=== PATIENT | male | born 1965 | race Caucasian/White ===

== ENCOUNTER 2017-09-13 17:01 | Observation (INO) | payer BC, OTHER ==
[2017-09-13] MEDS ORDERED: NITRO-BID 2% UD PACKETS TOP ONE (17:49)
[2017-09-13] MEDS ORDERED: BABY ASPIRIN 81 MG CHEW PO ONE (17:49)
[2017-09-13] MEDS ORDERED: NITRO-BID 2% UD PACKETS ONE (17:53)
[2017-09-13] MEDS ORDERED: Sodium Chloride 0.9% 1000 ML 1,000 ML ONE (17:53)
[2017-09-13] MEDS ORDERED: BABY ASPIRIN 81 MG CHEW ONE (17:53)
--- NOTE | 2017-09-13 17:56 | ERPHSYRPT ---
- History of Present Illness Time Seen by Provider: 09/13/17 17:51 Historian: patient Exam Limitations: no limitations Patient Subjective Stated Complaint: Patient states his blood pressure is high. Patient checked at home and it was 188/122 and 193/117. Patient states he was feeling normal for himself. Triage Nursing Assessment: Patient states his blood pressure is high. Patient checked at home and it was 188/122 and 193/117. Patient states he was feeling normal for himself. Patient complains of chest pain on and off for 4-5 days. Patient states he doesn't take any blood pressure medication currently, but was taking Lisinopril 20mg bid and Chlorthalidone 25mg daily. Patient hasn't taken blood pressure meds for a month and a half. Heart tones audible and strong. No edema present. Physician History: 52-year-old white male with history of high blood pressure and pulmonary hypertension who states he has not taken his blood pressure medications for a month. Arrives with intermittent anterior chest pain described as a pressure not associated with shortness of breath off-and-on for the past several days he states that for the past 4 hours he is having pain in the anterior chest described as a pressure rated 4 out of 10. Past medical history includes high blood pressure, pulmonary hypertension. Past surgical history includes hernia repair, mastectomy, finger surgery. patient does state that at 188/122 and the second time at 193/117 Timing/Duration: day(s) Activities at Onset: none Quality: pressure Location: substernal Chest Pain Radiation: no radiation Severity of Pain-Max: moderate Severity of Pain-Current: mild Associated Symptoms: No nausea, No vomiting, No palpitations, No heartburn, No abdominal pain, No shortness of breath, No cough, No hurts to breathe, No diaphoresis, No chills, No fever, No fatigue, No weakness, No swelling/lump in chest, No syncope, No rash, No headache, No dizziness, No edema, No back pain Nitro Today/Relief: provided by ED (nitroglycerine 1 inch in er) Aspirin Treatment Today: 81 mg x 4, provided by ED Allergies/Adverse Reactions: No Known Drug Allergies Allergy (Unverified 09/13/17 17:36) Home Medications: No Reportable Medications [No Reported Medications] 09/13/17 [History] Hx Tetanus, Diphtheria Vaccination/Date Given: Yes Hx Influenza Vaccination/Date Given: No Hx Pneumococcal Vaccination/Date Given: No Immunizations Up to Date: Yes - Review of Systems Constitutional: No Fever, No Chills Eyes: No Symptoms Ears, Nose, & Throat: No Symptoms Respiratory: No Cough, No Dyspnea Cardiac: Chest Pain Abdominal/Gastrointestinal: No Abdominal Pain, No Nausea, No Vomiting, No Diarrhea Genitourinary Symptoms: No Dysuria Musculoskeletal: No Back Pain, No Neck Pain Skin: No Rash Neurological: No Dizziness, No Focal Weakness, No Sensory Changes Psychological: No Symptoms Endocrine: No Symptoms All Other Systems: Reviewed and Negative - Past Medical History Pertinent Past Medical History: Yes Neurological History: No Pertinent History ENT History: No Pertinent History Cardiac History: Hypertension Respiratory History: No Pertinent History Endocrine Medical History: No Pertinent History Musculoskeletal History: No Pertinent History GI Medical History: No Pertinent History History: No Pertinent History Psycho-Social History: No Pertinent History Other Medical History: Pulmonary HTN - Past Surgical History Past Surgical History: Yes Neuro Surgical History: No Pertinent History Cardiac: No Pertinent History Respiratory: No Pertinent History Gastrointestinal: Hernia Repair Musculoskeletal: Other Male Surgical History: Vasectomy Other Surgical History: Vescectomy, Hernia, finger reconstruction surgery on 3 digits. - Social History Smoking Status: Never smoker Exposure to second hand smoke: No Drug Use: none Patient Lives Alone: No - Nursing Vital Signs Nursing Vital Signs: Initial Vital Signs Temperature 98.3 F 09/13/17 17:22 Pulse Rate 69 09/13/17 17:22 Respiratory Rate 14 09/13/17 17:22 Blood Pressure 196/123 09/13/17 17:22 O2 Sat by Pulse Oximetry 97 09/13/17 17:22 Pain Scale Pain Intensity 4 - Physical Exam General Appearance: no apparent distress, alert Eye Exam: PERRL/EOMI, eyes nml inspection Ears, Nose, Throat Exam: normal ENT inspection, moist mucous membranes Neck Exam: normal inspection, non-tender, supple, full range of motion Respiratory Exam: normal breath sounds, lungs clear, No respiratory distress Cardiovascular Exam: regular rate/rhythm, normal heart sounds Gastrointestinal/Abdomen Exam: soft, No tenderness, No mass Back Exam: normal inspection, No CVA tenderness, No vertebral tenderness Extremity Exam: normal inspection, normal range of motion Neurologic Exam: alert, oriented x 3, cooperative, dyer helper II-XII nml as tested, normal mood/affect, sensation nml, No motor deficits Skin Exam: normal color, warm, dry SpO2 Interpretation: airway management int. (97%) SpO2: 97 - Course Nursing assessment & vital signs reviewed: Yes EKG Interpreted by Me: RATE (72 bpm), Sinus Rhythm, NORMAL AXIS, Other (EKG: Sinus rhythm, 72 bpm, normal axis, no acute ST or T wave changes, essentially normal EKG) Ordered Tests: Active Orders 24 hr Category Date Time Status Health Coach STAT Care 09/13/17 17:50 Active EKG-ER Only STAT Care 09/13/17 17:49 Active IV Insertion STAT Care 09/13/17 17:49 Active Pulse Oximetry (ED) STAT Care 09/13/17 17:49 Active CHEST 1 VIEW (PORTABLE) Stat Exams 09/13/17 17:50 Taken CBC W DIFF Stat Lab 09/13/17 17:49 Completed CMP Stat Lab 09/13/17 Completed D-DIMER QUANTITATION Stat Lab 09/13/17 17:49 Completed PROTIME WITH INR Stat Lab 09/13/17 17:49 Completed PTT Stat Lab 09/13/17 17:49 Completed TROPONIN Q3H Lab 09/13/17 Completed TROPONIN Q3H Lab 09/13/17 21:00 Ordered TROPONIN Q3H Lab 09/14/17 00:00 Ordered TROPONIN Q3H Lab 09/14/17 03:00 Ordered TROPONIN Q3H Lab 09/14/17 06:00 Ordered Medication Summary Generic Name Dose Route Start Last Admin Trade Name Freq PRN Reason Stop Dose Admin Sodium Chloride 1,000 mls @ 50 mls/hr 09/13/17 18:00 09/13/17 17:55 Sodium Chloride 0.9% 1000 Ml IV 10/13/17 17:59 50 mls/hr .Q20H BRITNI Administration Discontinued Medications Generic Name Dose Route Start Last Admin Trade Name Freq PRN Reason Stop Dose Admin Amlodipine Besylate 10 mg 09/13/17 19:10 Norvasc 5 Mg PO 09/13/17 19:11 STAT ONE Aspirin 324 mg 09/13/17 17:49 09/13/17 17:54 Baby Aspirin 81 Mg Chew PO 09/13/17 17:50 324 mg STAT ONE Administration Aspirin Confirm 09/13/17 17:53 Baby Aspirin 81 Mg Chew Administered 09/13/17 17:54 Dose 324 mg .ROUTE .STK-MED ONE Nitroglycerin 1 gm 09/13/17 17:49 09/13/17 17:55 Nitro-Bid 2% Ud Packets TOP 09/13/17 17:50 1 gm STAT ONE Administration Nitroglycerin Confirm 09/13/17 17:53 Nitro-Bid 2% Ud Packets Administered 09/13/17 17:54 Dose 1 gm .ROUTE .STK-MED ONE Lab/Rad Data: Laboratory Result Diagrams 09/13/17 17:49 09/13/17 Unknown Laboratory Results 09/13/17 09/13/17 09/13/17 Range/Units Unknown Unknown 17:49 WBC (4.0-10.5) K/mm3 RBC (4.1-5.6) M/mm3 Hgb (12.5-18.0) gm/dl Hct (42-50) % MCV (78-100) fl MCH (26-32) pg MCHC (32-36) g/dl RDW (11.5-14.0) % Plt Count (150-450) K/mm3 MPV (6-9.5) fl Gran % (36.0-66.0) % Eos # (Auto) (0-0.5) Absolute Lymphs (auto) (1.0-4.6) Absolute Monos (auto) (0.0-1.3) Lymphocytes % (24.0-44.0) % Monocytes % (0.0-12.0) % Eosinophils % (0.00-5.0) % Basophils % (0.0-0.4) % Absolute Granulocytes (1.4-6.9) Basophils # (0-0.4) PT 12.1 (8.83-12.87) SECONDS INR 1.04 (0.8-3.0) APTT 36.6 H (24.1-36.1) SECONDS D-Dimer 238 (215-500) ng/mL Sodium 141 (137-145) mmol/L Potassium 3.5 (3.5-5.1) mmol/L Chloride 103 (98-107) mmol/L Carbon Dioxide 26 (22-30) mmol/L Anion Gap 14.9 (5-15) MEQ/L BUN 11 (9-20) mg/dL Creatinine 1.07 (0.66-1.25) mg/dL Estimated GFR > 60.0 ML/MIN Glucose 100 (74-106) mg/dL Calcium 9.5 (8.4-10.2) mg/dL Total Bilirubin 0.90 (0.2-1.3) mg/dL AST 30 (17-59) U/L ALT 34 (0-50) U/L Alkaline Phosphatase 88 (38-126) U/L Troponin I < 0.012 (0.000-0.034) ng/mL Serum Total Protein 8.3 H (6.3-8.2) g/dL Albumin 5.0 (3.5-5.0) g/dL 09/13/17 Range/Units 17:49 WBC 7.1 (4.0-10.5) K/mm3 RBC 5.01 (4.1-5.6) M/mm3 Hgb 15.9 (12.5-18.0) gm/dl Hct 44.1 (42-50) % MCV 88.0 (78-100) fl MCH 31.7 (26-32) pg MCHC 36.1 H (32-36) g/dl RDW 12.8 (11.5-14.0) % Plt Count 198 (150-450) K/mm3 MPV 10.8 H (6-9.5) fl Gran % 61.8 (36.0-66.0) % Eos # (Auto) 0.24 (0-0.5) Absolute Lymphs (auto) 1.95 (1.0-4.6) Absolute Monos (auto) 0.49 (0.0-1.3) Lymphocytes % 27.3 (24.0-44.0) % Monocytes % 6.9 (0.0-12.0) % Eosinophils % 3.4 (0.00-5.0) % Basophils % 0.6 (0.0-0.4) % Absolute Granulocytes 4.42 (1.4-6.9) Basophils # 0.04 (0-0.4) PT (8.83-12.87) SECONDS INR (0.8-3.0) APTT (24.1-36.1) SECONDS D-Dimer (215-500) ng/mL Sodium (137-145) mmol/L Potassium (3.5-5.1) mmol/L Chloride (98-107) mmol/L Carbon Dioxide (22-30) mmol/L Anion Gap (5-15) MEQ/L BUN (9-20) mg/dL Creatinine (0.66-1.25) mg/dL Estimated GFR ML/MIN Glucose (74-106) mg/dL Calcium (8.4-10.2) mg/dL Total Bilirubin (0.2-1.3) mg/dL AST (17-59) U/L ALT (0-50) U/L Alkaline Phosphatase (38-126) U/L Troponin I (0.000-0.034) ng/mL Serum Total Protein (6.3-8.2) g/dL Albumin (3.5-5.0) g/dL - Progress Progress: improved Air Movement: fair Progress Note: 09/13/17 19:13 Patient feeling better after 1 inch of nitropaste, aspirin 324 mg blood pressure improved 159/112 Patient's EKG showed normal sinus rhythm 72 bpm normal axis no acute ST or T wave changes chemistry and CBC were normal troponin was within normal limits d- dimer within normal limits Patient feeling much better with the nitroglycerin and aspirin. I discussed case with Dr. Yeh she requested that I go ahead and place patient on Norvasc 10 mg orally daily She also requested that I write for hydralazine 10 mg IV when necessary systolic blood pressure greater than 180 diastolic blood pressure greater than 110. Will go ahead and place patient on observation diagnosis chest pain, rule out [place]. Hypertension. - Departure Time of Disposition: 19:16 Departure Disposition: Observation Clinical Impression: Chest pain, rule out acute myocardial infarction Chest pain Qualifiers: Chest pain type: unspecified Qualified Code(s): R07.9 - Chest pain, unspecified Hypertension Qualifiers: Hypertension type: unspecified Qualified Code(s): I10 - Essential (primary) hypertension Condition: Fair Critical Care Time: No Referrals: PATIENCE CAMPO [Primary Care Provider] -
[2017-09-13] MEDS ORDERED: Sodium Chloride 0.9% 1000 ML 1,000 ML IV SCH ×2 (18:00→20:30)
[2017-09-13 18:15] LABS: BASOPHIL % 0.6 % (0.0-0.4); Basophil (Absolute #) 0.04 (0-0.4); Eosinophil % 3.4 % (0.00-5.0); Eosinophil (Absolute #) 0.24 (0-0.5); Granulocyte Absolute (ANC) 4.42 (1.4-6.9); Granulocytes % 61.8 % (36.0-66.0); Hematocrit 44.1 % (42-50); Hemoglobin 15.9 gm/dl (12.5-18.0); Lymphocyte (Absolute #) 1.95 (1.0-4.6); Lymphocytes % 27.3 % (24.0-44.0); Mean Corpuscular Hemoglobin 31.7 pg (26-32); Mean Corpuscular Hgb Concent. 36.1 g/dl (32-36); Mean Platelet Volume 10.8 fl (6-9.5); Monocyte (Absolute #) 0.49 (0.0-1.3); Monocytes % 6.9 % (0.0-12.0); Platelet Count 198 K/mm3 (150-450); Red Blood Count 5.01 M/mm3 (4.1-5.6); Red Cell Distribution Width 12.8 % (11.5-14.0); White Blood Count 7.1 K/mm3 (4.0-10.5)
[2017-09-13 18:18] LABS: INR 1.04 (0.8-3.0)
[2017-09-13 18:21] LABS: PTT 36.6 SECONDS (24.1-36.1)
[2017-09-13 18:22] LABS: ALKALINE PHOSPHATASE 88 U/L (38-126); ANION GAP 14.9 MEQ/L (5-15); BLOOD UREA NITROGEN 11 mg/dL (9-20); CHLORIDE 103 mmol/L (98-107); Calcium 9.5 mg/dL (8.4-10.2); Carbon Dioxide 26 mmol/L (22-30); Creatinine 1 1.07 mg/dL (0.66-1.25); Glucose 100 mg/dL (74-106); Potassium 3.5 mmol/L (3.5-5.1); SGOT/AST 30 U/L (17-59); SGPT/ALT 34 U/L (0-50); SODIUM 141 mmol/L (137-145); Total Protein 8.3 g/dL (6.3-8.2)
[2017-09-13] MEDS ORDERED: NORVASC 5 MG PO ONE (19:10)
[2017-09-13] MEDS ORDERED: NORVASC 5 MG ONE (19:16)
[2017-09-13] MEDS ORDERED: APRESOLINE 20 MG/ML INJ IV PRN (20:14)
[2017-09-13] MEDS ORDERED: NITRO-BID 2% UD PACKETS TOP PRN (21:49)
[2017-09-13] MEDS ORDERED: Zestril 20 MG PO ONE (21:50)
[2017-09-13] MEDS ORDERED: NORVASC 5 MG PO SCH (22:00)
[2017-09-13] MEDS ORDERED: NITRO-BID 2% UD PACKETS TOP SCH (22:00)
[2017-09-13] MEDS: MOTRIN 400 MG PO PRN (22:01)
[2017-09-14 05:55] LABS: BASOPHIL % 0.6 % (0.0-0.4); Basophil (Absolute #) 0.04 (0-0.4); Eosinophil % 3.1 % (0.00-5.0); Eosinophil (Absolute #) 0.22 (0-0.5); Granulocyte Absolute (ANC) 5.11 (1.4-6.9); Hematocrit 41.7 % (42-50); Hemoglobin 14.8 gm/dl (12.5-18.0); Lymphocyte (Absolute #) 1.31 (1.0-4.6); Lymphocytes % 18.2 % (24.0-44.0); Mean Cell Volume 89.1 fl (78-100); Mean Corpuscular Hemoglobin 31.6 pg (26-32); Mean Corpuscular Hgb Concent. 35.5 g/dl (32-36); Mean Platelet Volume 10.4 fl (6-9.5); Monocyte (Absolute #) 0.51 (0.0-1.3); Monocytes % 7.1 % (0.0-12.0); Platelet Count 153 K/mm3 (150-450); Red Blood Count 4.68 M/mm3 (4.1-5.6); Red Cell Distribution Width 12.8 % (11.5-14.0); White Blood Count 7.2 K/mm3 (4.0-10.5)
[2017-09-14 06:21] LABS: ALKALINE PHOSPHATASE 70 U/L (38-126); ANION GAP 13.8 MEQ/L (5-15); BLOOD UREA NITROGEN 13 mg/dL (9-20); CHLORIDE 104 mmol/L (98-107); Calcium 9.3 mg/dL (8.4-10.2); Carbon Dioxide 26 mmol/L (22-30); Creatinine 1 0.96 mg/dL (0.66-1.25); Glucose 108 mg/dL (74-106); Potassium 3.9 mmol/L (3.5-5.1); SGOT/AST 23 U/L (17-59); SGPT/ALT 28 U/L (0-50); SODIUM 139 mmol/L (137-145); Total Protein 6.8 g/dL (6.3-8.2)
[2017-09-14 07:18] VITALS: O2SAT 97
--- NOTE | 2017-09-14 08:03 | XRAY ---
Indication: Chest pain. Comparison: January 09, 2016. Portable chest less inflated crowding the lung bases. No focal infiltrate, consolidation, or large effusion. Heart is not enlarged. Bony thorax intact again with mild degenerative changes. Impression: Nonacute chest.
[2017-09-14] MEDS: MOTRIN 400 MG PO PRN (09:08)
[2017-09-14] MEDS ORDERED: Zestril 20 MG PO SCH (10:00)
[2017-09-14 12:50] VITALS: BP 137/82; PULSE 75
--- NOTE | 2017-09-14 12:57 | PCM.SSS ---
History of Present Illness - Chief Complaint Chief Complaint: Chest Pain, r/o MA, Hypertension History of Present Illness: is a 52 year old male pt of Dr. quiroz with HTN who came to ER wiht elevated BP and CP. CP was substernal, 6/10, possibly radiating to the back. Some SOB, some slight palpitations. He has been having elevated BP for the past several weeks; was out of his meds and was waiting on an appt in order to get them refilled. He has never been a smoker. MGM with heart disease. - Review of Systems Abdominal/Gastrointestinal: Abdominal Pain (RUQ, frequent), Vomiting (1/mo) Musculoskeletal: Back Pain (chronic) Neurological: Dizziness (about 4x/wk) Psychological: No Suicidal Ideations Medications & Allergies Home Medications: Home Medication List Chlorthalidone 25 mg PO DAILY 09/13/17 [History Confirmed 09/13/17] Ibuprofen 200 mg [Motrin 200 mg] 400 mg PO UD PRN 09/13/17 [History Confirmed 09/13/17] Lisinopril 20 mg [Zestril 20 MG] 20 mg PO BID 09/13/17 [History Confirmed 09/13/17] Amlodipine Besylate 5 mg [Norvasc 5 mg] 5 mg PO HS PRN #15 tablet [Rx] Allergies/Adverse Reactions: Allergies Allergy/AdvReac Type Severity Reaction Status Date / Time No Known Drug Allergies Allergy Unverified 09/13/17 17:36 - Past Medical History Past Medical History: Yes Neurological History: No Pertinent History ENT History: No Pertinent History Cardiac History: Hypertension Respiratory History: No Pertinent History Endocrine Medical History: No Pertinent History Musculoskelatal History: No Pertinent History GI Medical History: No Pertinent History History: No Pertinent History Pyscho-Social History: No Pertinent History Male Reproductive Disorders: No Pertinent History Comment: Pulmonary HTN - Past Surgical History Past Surgical History: Yes Neuro Surgical History: No Pertinent History Cardiac History: No Pertinent History Respiratory Surgery: No Pertinent History GI Surgical History: Hernia Repair Genitourinary Surgical Hx: No Pertinent History Musculskeletal Surgical Hx: Other Male Surgical History: Vasectomy Other Surgical History: Vescectomy, Hernia, finger reconstruction surgery on 3 digits. - Social History Smoking Status: Never smoker Exposure to second hand smoke: No Alcohol: None Drug Use: none - Physical Exam Vital Signs: Vital Signs - 24 hr Temp Pulse Resp BP Pulse Ox 09/14/17 12:50 97.8 F 75 20 137/82 97 09/14/17 07:17 98 F 63 20 120/78 97 09/14/17 03:50 97.5 F 59 L 18 122/69 99 09/14/17 00:31 97.7 F 64 18 127/76 93 L 09/13/17 20:54 97.9 F 63 18 167/98 94 L 09/13/17 20:13 95 09/13/17 19:17 97 09/13/17 19:00 67 18 159/124 95 09/13/17 18:48 70 16 159/124 96 09/13/17 17:55 97 09/13/17 17:54 72 16 181/124 97 09/13/17 17:22 98.3 F 69 14 196/123 97 Oxygen-Last 24 hours O2 Percentage 2 Liters = 28% O2 Percentage 2 Liters = 28% Results - Labs Lab/Micro Results: Lab Results-Last 24 Hours 09/13/17 09/13/17 09/13/17 Range/Units 17:49 17:49 21:00 WBC 7.1 (4.0-10.5) K/mm3 RBC 5.01 (4.1-5.6) M/mm3 Hgb 15.9 (12.5-18.0) gm/dl Hct 44.1 (42-50) % MCV 88.0 (78-100) fl MCH 31.7 (26-32) pg MCHC 36.1 H (32-36) g/dl RDW 12.8 (11.5-14.0) % Plt Count 198 (150-450) K/mm3 MPV 10.8 H (6-9.5) fl Gran % 61.8 (36.0-66.0) % Eos # (Auto) 0.24 (0-0.5) Absolute Lymphs (auto) 1.95 (1.0-4.6) Absolute Monos (auto) 0.49 (0.0-1.3) Lymphocytes % 27.3 (24.0-44.0) % Monocytes % 6.9 (0.0-12.0) % Eosinophils % 3.4 (0.00-5.0) % Basophils % 0.6 (0.0-0.4) % Absolute Granulocytes 4.42 (1.4-6.9) Basophils # 0.04 (0-0.4) PT 12.1 (8.83-12.87) SECONDS INR 1.04 (0.8-3.0) APTT 36.6 H (24.1-36.1) SECONDS D-Dimer 238 (215-500) ng/mL Sodium (137-145) mmol/L Potassium (3.5-5.1) mmol/L Chloride (98-107) mmol/L Carbon Dioxide (22-30) mmol/L Anion Gap (5-15) MEQ/L BUN (9-20) mg/dL Creatinine (0.66-1.25) mg/dL Estimated GFR ML/MIN Glucose (74-106) mg/dL Calcium (8.4-10.2) mg/dL Total Bilirubin (0.2-1.3) mg/dL AST (17-59) U/L ALT (0-50) U/L Alkaline Phosphatase (38-126) U/L Troponin I < 0.012 (0.000-0.034) ng/mL Serum Total Protein (6.3-8.2) g/dL Albumin (3.5-5.0) g/dL 09/13/1718 09/14/17 Range/Units Unknown Unknown 00:30 WBC (4.0-10.5) K/mm3 RBC (4.1-5.6) M/mm3 Hgb (12.5-18.0) gm/dl Hct (42-50) % MCV (78-100) fl MCH (26-32) pg MCHC (32-36) g/dl RDW (11.5-14.0) % Plt Count (150-450) K/mm3 MPV (6-9.5) fl Gran % (36.0-66.0) % Eos # (Auto) (0-0.5) Absolute Lymphs (auto) (1.0-4.6) Absolute Monos (auto) (0.0-1.3) Lymphocytes % (24.0-44.0) % Monocytes % (0.0-12.0) % Eosinophils % (0.00-5.0) % Basophils % (0.0-0.4) % Absolute Granulocytes (1.4-6.9) Basophils # (0-0.4) PT (8.83-12.87) SECONDS INR (0.8-3.0) APTT (24.1-36.1) SECONDS D-Dimer (215-500) ng/mL Sodium 141 (137-145) mmol/L Potassium 3.5 (3.5-5.1) mmol/L Chloride 103 (98-107) mmol/L Carbon Dioxide 26 (22-30) mmol/L Anion Gap 14.9 (5-15) MEQ/L BUN 11 (9-20) mg/dL Creatinine 1.07 (0.66-1.25) mg/dL Estimated GFR > 60.0 ML/MIN Glucose 100 (74-106) mg/dL Calcium 9.5 (8.4-10.2) mg/dL Total Bilirubin 0.90 (0.2-1.3) mg/dL AST 30 (17-59) U/L ALT 34 (0-50) U/L Alkaline Phosphatase 88 (38-126) U/L Troponin I < 0.012 < 0.012 (0.000-0.034) ng/mL Serum Total Protein 8.3 H (6.3-8.2) g/dL Albumin 5.0 (3.5-5.0) g/dL 09/14/17 09/14/17 09/14/17 Range/Units 03:30 05:45 05:45 WBC 7.2 (4.0-10.5) K/mm3 RBC 4.68 (4.1-5.6) M/mm3 Hgb 14.8 (12.5-18.0) gm/dl Hct 41.7 L (42-50) % MCV 89.1 (78-100) fl MCH 31.6 (26-32) pg MCHC 35.5 (32-36) g/dl RDW 12.8 (11.5-14.0) % Plt Count 153 (150-450) K/mm3 MPV 10.4 H (6-9.5) fl Gran % 71.0 H (36.0-66.0) % Eos # (Auto) 0.22 (0-0.5) Absolute Lymphs (auto) 1.31 (1.0-4.6) Absolute Monos (auto) 0.51 (0.0-1.3) Lymphocytes % 18.2 L (24.0-44.0) % Monocytes % 7.1 (0.0-12.0) % Eosinophils % 3.1 (0.00-5.0) % Basophils % 0.6 (0.0-0.4) % Absolute Granulocytes 5.11 (1.4-6.9) Basophils # 0.04 (0-0.4) PT (8.83-12.87) SECONDS INR (0.8-3.0) APTT (24.1-36.1) SECONDS D-Dimer (215-500) ng/mL Sodium (137-145) mmol/L Potassium (3.5-5.1) mmol/L Chloride (98-107) mmol/L Carbon Dioxide (22-30) mmol/L Anion Gap (5-15) MEQ/L BUN (9-20) mg/dL Creatinine (0.66-1.25) mg/dL Estimated GFR ML/MIN Glucose (74-106) mg/dL Calcium (8.4-10.2) mg/dL Total Bilirubin (0.2-1.3) mg/dL AST (17-59) U/L ALT (0-50) U/L Alkaline Phosphatase (38-126) U/L Troponin I < 0.012 < 0.012 (0.000-0.034) ng/mL Serum Total Protein (6.3-8.2) g/dL Albumin (3.5-5.0) g/dL 09/14/17 Range/Units 05:45 WBC (4.0-10.5) K/mm3 RBC (4.1-5.6) M/mm3 Hgb (12.5-18.0) gm/dl Hct (42-50) % MCV (78-100) fl MCH (26-32) pg MCHC (32-36) g/dl RDW (11.5-14.0) % Plt Count (150-450) K/mm3 MPV (6-9.5) fl Gran % (36.0-66.0) % Eos # (Auto) (0-0.5) Absolute Lymphs (auto) (1.0-4.6) Absolute Monos (auto) (0.0-1.3) Lymphocytes % (24.0-44.0) % Monocytes % (0.0-12.0) % Eosinophils % (0.00-5.0) % Basophils % (0.0-0.4) % Absolute Granulocytes (1.4-6.9) Basophils # (0-0.4) PT (8.83-12.87) SECONDS INR (0.8-3.0) APTT (24.1-36.1) SECONDS D-Dimer (215-500) ng/mL Sodium 139 (137-145) mmol/L Potassium 3.9 (3.5-5.1) mmol/L Chloride 104 (98-107) mmol/L Carbon Dioxide 26 (22-30) mmol/L Anion Gap 13.8 (5-15) MEQ/L BUN 13 (9-20) mg/dL Creatinine 0.96 (0.66-1.25) mg/dL Estimated GFR > 60.0 ML/MIN Glucose 108 H (74-106) mg/dL Calcium 9.3 (8.4-10.2) mg/dL Total Bilirubin 1.00 (0.2-1.3) mg/dL AST 23 (17-59) U/L ALT 28 (0-50) U/L Alkaline Phosphatase 70 (38-126) U/L Troponin I (0.000-0.034) ng/mL Serum Total Protein 6.8 (6.3-8.2) g/dL Albumin 4.0 (3.5-5.0) g/dL - Radiology Impressions Radiology Exams & Impressions: Radiology Procedures Category Date Time Status CHEST 1 VIEW (PORTABLE) Stat Exams 09/13/17 17:50 Completed Assessment/Plan (1) Chest pain Current Visit: Yes Status: Acute Onset Date: ~09/13/17 Qualifiers: Chest pain type: unspecified Qualified Code(s): R07.9 - Chest pain, unspecified Assessment & Plan: MA ruled out. Needs outpatient treadmill stress test and echo. Any CP or SOB come to ER [facility]. Code(s): R07.9 - CHEST PAIN, UNSPECIFIED (2) Hypertension Current Visit: Yes Status: Acute Onset Date: ~09/13/17 Qualifiers: Hypertension type: unspecified Qualified Code(s): I10 - Essential (primary ) hypertension Assessment & Plan: BP much better this morning. restart home meds; home with amlodipine prn elevated BP. Code(s): I10 - ESSENTIAL (PRIMARY) HYPERTENSION (3) Abdominal pain Current Visit: Yes Status: Acute Qualifiers: Abdominal location: right upper quadrant Qualified Code(s): R10.11 - Right upper quadrant pain Assessment & Plan: outpatient u/s. Code(s): R10.9 - UNSPECIFIED ABDOMINAL PAIN Hospital Summary - Hospital Course Hospital Course: Pt is 52 yo male pt of Dr. Quiroz with HTN who came in to ER with elevated bp and chest pain. Out of meds x 2 weeks. His troponins were negative. He has also been c/o RUQ pain and 1 episode a month of vomiting. He will get a stress test, echocardiogram, and RUQ u/s on discharge. Last treadmill test approx 3 yrs ago per pt. He will be discharged on his previous medicines; I have explained since lisinopril takes up to a week to reach full effectiveness, he will be given prn amlodipine to take this week. He will f/u with Dr. Quiroz. Any chest pain or SOB will go to the ER. During his stay, he was hypoxemic to 85% on RA while sleeping so was placed on 2L NC. We will send him home on home O2 with further workup to be ordered by Dr. Quiroz. - Vitals & Intake/Output Vital Signs: Vital Signs Temperature 97.8 F 09/14/17 12:50 Pulse Rate 75 09/14/17 12:50 Respiratory Rate 20 09/14/17 12:50 Blood Pressure 137/82 09/14/17 12:50 O2 Sat by Pulse Oximetry 97 09/14/17 12:50 Oxygen-Last Documented O2 Percentage 2 Liters = 28% Intake & Output: Intake & Output 09/12/17 09/13/17 09/14/17 09/15/17 11:59 11:59 11:59 11:59 Intake Total 995 Balance 995 Weight 99.2 kg - Lab Result Diagrams: 09/14/17 05:45 09/14/17 05:45 Lab Results-Last 24 Hrs: Lab Results-Last 24 Hours 09/13/17 09/13/17 09/13/17 Range/Units 17:49 17:49 21:00 WBC 7.1 (4.0-10.5) K/mm3 RBC 5.01 (4.1-5.6) M/mm3 Hgb 15.9 (12.5-18.0) gm/dl Hct 44.1 (42-50) % MCV 88.0 (78-100) fl MCH 31.7 (26-32) pg MCHC 36.1 H (32-36) g/dl RDW 12.8 (11.5-14.0) % Plt Count 198 (150-450) K/mm3 MPV 10.8 H (6-9.5) fl Gran % 61.8 (36.0-66.0) % Eos # (Auto) 0.24 (0-0.5) Absolute Lymphs (auto) 1.95 (1.0-4.6) Absolute Monos (auto) 0.49 (0.0-1.3) Lymphocytes % 27.3 (24.0-44.0) % Monocytes % 6.9 (0.0-12.0) % Eosinophils % 3.4 (0.00-5.0) % Basophils % 0.6 (0.0-0.4) % Absolute Granulocytes 4.42 (1.4-6.9) Basophils # 0.04 (0-0.4) PT 12.1 (8.83-12.87) SECONDS INR 1.04 (0.8-3.0) APTT 36.6 H (24.1-36.1) SECONDS D-Dimer 238 (215-500) ng/mL Sodium (137-145) mmol/L Potassium (3.5-5.1) mmol/L Chloride (98-107) mmol/L Carbon Dioxide (22-30) mmol/L Anion Gap (5-15) MEQ/L BUN (9-20) mg/dL Creatinine (0.66-1.25) mg/dL Estimated GFR ML/MIN Glucose (74-106) mg/dL Calcium (8.4-10.2) mg/dL Total Bilirubin (0.2-1.3) mg/dL AST (17-59) U/L ALT (0-50) U/L Alkaline Phosphatase (38-126) U/L Troponin I < 0.012 (0.000-0.034) ng/mL Serum Total Protein (6.3-8.2) g/dL Albumin (3.5-5.0) g/dL 09/13/17 09/13/17 09/14/17 Range/Units Unknown Unknown 00:30 WBC (4.0-10.5) K/mm3 RBC (4.1-5.6) M/mm3 Hgb (12.5-18.0) gm/dl Hct (42-50) % MCV (78-100) fl MCH (26-32) pg MCHC (32-36) g/dl RDW (11.5-14.0) % Plt Count (150-450) K/mm3 MPV (6-9.5) fl Gran % (36.0-66.0) % Eos # (Auto) (0-0.5) Absolute Lymphs (auto) (1.0-4.6) Absolute Monos (auto) (0.0-1.3) Lymphocytes % (24.0-44.0) % Monocytes % (0.0-12.0) % Eosinophils % (0.00-5.0) % Basophils % (0.0-0.4) % Absolute Granulocytes (1.4-6.9) Basophils # (0-0.4) PT (8.83-12.87) SECONDS INR (0.8-3.0) APTT (24.1-36.1) SECONDS D-Dimer (215-500) ng/mL Sodium 141 (137-145) mmol/L Potassium 3.5 (3.5-5.1) mmol/L Chloride 103 (98-107) mmol/L Carbon Dioxide 26 (22-30) mmol/L Anion Gap 14.9 (5-15) MEQ/L BUN 11 (9-20) mg/dL Creatinine 1.07 (0.66-1.25) mg/dL Estimated GFR > 60.0 ML/MIN Glucose 100 (74-106) mg/dL Calcium 9.5 (8.4-10.2) mg/dL Total Bilirubin 0.90 (0.2-1.3) mg/dL AST 30 (17-59) U/L ALT 34 (0-50) U/L Alkaline Phosphatase 88 (38-126) U/L Troponin I < 0.012 < 0.012 (0.000-0.034) ng/mL Serum Total Protein 8.3 H (6.3-8.2) g/dL Albumin 5.0 (3.5-5.0) g/dL 09/14/17 09/14/17 09/14/17 Range/Units 03:30 05:45 05:45 WBC 7.2 (4.0-10.5) K/mm3 RBC 4.68 (4.1-5.6) M/mm3 Hgb 14.8 (12.5-18.0) gm/dl Hct 41.7 L (42-50) % MCV 89.1 (78-100) fl MCH 31.6 (26-32) pg MCHC 35.5 (32-36) g/dl RDW 12.8 (11.5-14.0) % Plt Count 153 (150-450) K/mm3 MPV 10.4 H (6-9.5) fl Gran % 71.0 H (36.0-66.0) % Eos # (Auto) 0.22 (0-0.5) Absolute Lymphs (auto) 1.31 (1.0-4.6) Absolute Monos (auto) 0.51 (0.0-1.3) Lymphocytes % 18.2 L (24.0-44.0) % Monocytes % 7.1 (0.0-12.0) % Eosinophils % 3.1 (0.00-5.0) % Basophils % 0.6 (0.0-0.4) % Absolute Granulocytes 5.11 (1.4-6.9) Basophils # 0.04 (0-0.4) PT (8.83-12.87) SECONDS INR (0.8-3.0) APTT (24.1-36.1) SECONDS D-Dimer (215-500) ng/mL Sodium (137-145) mmol/L Potassium (3.5-5.1) mmol/L Chloride (98-107) mmol/L Carbon Dioxide (22-30) mmol/L Anion Gap (5-15) MEQ/L BUN (9-20) mg/dL Creatinine (0.66-1.25) mg/dL Estimated GFR ML/MIN Glucose (74-106) mg/dL Calcium (8.4-10.2) mg/dL Total Bilirubin (0.2-1.3) mg/dL AST (17-59) U/L ALT (0-50) U/L Alkaline Phosphatase (38-126) U/L Troponin I < 0.012 < 0.012 (0.000-0.034) ng/mL Serum Total Protein (6.3-8.2) g/dL Albumin (3.5-5.0) g/dL 09/14/17 Range/Units 05:45 WBC (4.0-10.5) K/mm3 RBC (4.1-5.6) M/mm3 Hgb (12.5-18.0) gm/dl Hct (42-50) % MCV (78-100) fl MCH (26-32) pg MCHC (32-36) g/dl RDW (11.5-14.0) % Plt Count (150-450) K/mm3 MPV (6-9.5) fl Gran % (36.0-66.0) % Eos # (Auto) (0-0.5) Absolute Lymphs (auto) (1.0-4.6) Absolute Monos (auto) (0.0-1.3) Lymphocytes % (24.0-44.0) % Monocytes % (0.0-12.0) % Eosinophils % (0.00-5.0) % Basophils % (0.0-0.4) % Absolute Granulocytes (1.4-6.9) Basophils # (0-0.4) PT (8.83-12.87) SECONDS INR (0.8-3.0) APTT (24.1-36.1) SECONDS D-Dimer (215-500) ng/mL Sodium 139 (137-145) mmol/L Potassium 3.9 (3.5-5.1) mmol/L Chloride 104 (98-107) mmol/L Carbon Dioxide 26 (22-30) mmol/L Anion Gap 13.8 (5-15) MEQ/L BUN 13 (9-20) mg/dL Creatinine 0.96 (0.66-1.25) mg/dL Estimated GFR > 60.0 ML/MIN Glucose 108 H (74-106) mg/dL Calcium 9.3 (8.4-10.2) mg/dL Total Bilirubin 1.00 (0.2-1.3) mg/dL AST 23 (17-59) U/L ALT 28 (0-50) U/L Alkaline Phosphatase 70 (38-126) U/L Troponin I (0.000-0.034) ng/mL Serum Total Protein 6.8 (6.3-8.2) g/dL Albumin 4.0 (3.5-5.0) g/dL - Radiology Exams Ordered Rad Exams-Entire Visit: Radiology Procedures Category Date Time Status CHEST 1 VIEW (PORTABLE) Stat Exams 09/13/17 17:50 Completed - Discharge Disposition: Home, Self-Care Condition: Stable Prescriptions: New Amlodipine Besylate 5 mg [Norvasc 5 mg] 5 mg PO HS PRN #15 tablet PRN Reason: Hypertension Continue Chlorthalidone 25 mg PO DAILY Lisinopril 20 mg [Zestril 20 MG] 20 mg PO BID Ibuprofen 200 mg [Motrin 200 mg] 400 mg PO UD PRN PRN Reason: Headache Follow up with: PATIENCE QUIROZ [Primary Care Provider] - 1 Week
== END 2017-09-14 15:07 | disposition home or self-care (01) ==
LOC: ED 17:01 → MED SURG 20:06
PROVIDERS: ADMIT Internal Medicine; ATTEND Internal Medicine
DX: R07.9 Chest pain, unspecified (principal); I10 Essential (primary) hypertension; R10.11 Right upper quadrant pain
CPT/HCPCS: 36000; 36415; 71045; 80053; 84484; 85025; 85379; 85610; 85730; 93005; 93041; 93268; 96360; 96361; 99285; A9270-GY; G0378

== ENCOUNTER 2024-01-23 11:18 | Day surgery (SDC) | payer OTHER ==
[2024-01-23] MEDS ORDERED: BUPIVACAINE 0.5% VIAL IJ ONE (11:19)
[2024-01-23] MEDS ORDERED: Depo-Medrol 40 MG/ML IM ONE (11:19)
[2024-01-23] MEDS ORDERED: LIDOCAINE HCL 1% AMPUL 5 ML IJ ONE (11:19)
--- NOTE | 2024-01-23 14:43 | XRAY ---
Indication: Bilateral SI joint injection. Intraoperative fluoroscopy provided for 12 seconds. 2 digital spot image submitted for interpretation demonstrates posterior needle tips projecting over left and right SI joints. Small amount of contrast injected for needle tip placement. Correlate with intraoperative findings/report. Incidental incompletely visualized left SI joint and left pubic bone fixation hardware.
--- NOTE | 2024-01-23 14:46 | XRAY ---
12 seconds of fluoroscopy was used in surgery for a bilateral sacroiliac joint injection.
== END 2024-01-23 14:31 | disposition home or self-care (01) ==
LOC: SDC-PAIN 11:18
PROVIDERS: ATTEND Psychiatry & Neurology Pain Medicine
DX: M46.1 Sacroiliitis, not elsewhere classified (principal)
CPT/HCPCS: 27096; 72202; 77002; Q9966